=== PATIENT | male | born 1955 | race Caucasian/White ===

== ENCOUNTER 2017-11-10 11:20 | Emergency (ER) | payer BC, SELFPAY ==
[2017-11-10 11:20] VITALS: PULSE 85; RESP 16; TEMP 36.6; O2SAT 98; BMI 34.2
[2017-11-10 11:25] VITALS: BP 174/96; PULSE 81; RESP 17; O2SAT 99
--- NOTE | 2017-11-10 11:40 | EKG12_ITS ---
Test Reason : Blood Pressure : / mmHG Vent. Rate : 075 BPM Atrial Rate : 075 BPM P-R Int : 156 ms QRS Dur : 094 ms QT Int : 416 ms P-R-T Axes : 029 023 031 degrees QTc Int : 464 ms Normal sinus rhythm Normal ECG Confirmed by TYLER DE DIOS, MIRA ([id number]), purchasing expeditor DAIN LUND ([id number]) on 11/12/2017 1:38:01 PM Referred By: JUJU Confirmed By:MIRA SCOTT MD
[2017-11-10 11:51] LABS: Absolute Lymphocyte Count 2.03 X10^3/ul (0.83-4.51); Absolute Neutrophil Count 9.1 X10^3/uL (2.0-7.7); Basophil# 0.03 X10^3/uL; Basophil% 0.2 % (0-1); Eosinophil# 0.07 X10^3/uL; Eosinophils% 0.6 % (0-5); Hematocrit 48.1 % (40-54); Hemoglobin 17.2 g/dl (13.0-16.5); Lymphocyte # 2.03 X10^3/ul (4.0); Lymphocyte % 16.9 % (19-41); Mean Corp Hgb Conc 35.8 g/gl (32-36); Mean Corpuscular Volume 83.9 fL (80-94); Mean Platelet Vol. 10.4 fl (6.2-12.0); Monocyte# 0.75 X10^3/uL; Monocyte% 6.2 % (0-10); Neutrophil # 9.13 X10^3/uL (2.7-7.7); Platelet Count 202 K/mm3 (150-450); RBC Distribution Width CV 13.1 % (11.6-14.6); RBC Distribution Width SD 39.9 fl (35.1-43.9); Red Blood Count 5.73 M/mm3 (4.6-6.2)
[2017-11-10 11:57] LABS: POSITIVE COUNT NO; POSITIVE DIFFERENTIAL NO; POSITIVE MORPHOLOGY NO
--- NOTE | 2017-11-10 12:01 | PCA ---
no old ekg
[2017-11-10] MEDS: Ondansetron 4 MG/2 ML Vial IV (12:06)
[2017-11-10] MEDS: 0.9% Normal Saline 1,000 ML 1000 ML IV (12:06)
[2017-11-10 12:22] LABS: Anion Gap 12 (5-15); BUN 16 mg/dL (7-18); BUN/Creat Ratio 10.6 RATIO (10-20); Calcium,Total 9.6 mg/dL (8.5-10.1); Chloride 104 mmol/L (98-107); Creatinine, Serum 1.51 mg/dL (0.70-1.30); EST Glomerular Filtration Rate 50 mL/min (>60); Est Glom Filt Rate - Afr Amer 61 mL/min (>60); Estimated Creatinine Clearance 48.03 ml/min; Glucose 145 mg/dL (74-106); Potassium 3.4 mmol/L (3.5-5.1); Sodium Level 139 mmol/L (136-145)
--- NOTE | 2017-11-10 12:35 | ED.VISSUMM ---
- ER Visit Summary Date of Service: 11/10/17 Chief Complaint: [Nausea, vomiting, and diarrhea] History of Present Illness: The patient is a 62 M [presents to the emergency department with complaint of not feeling well. Patient tells me that while in [place] he had been standing and began feeling sweaty and near syncopal. There was no syncope however patient did become very diaphoretic. Patient states that he has been ill and throughout the evening he had episodes of diarrhea. Patient does complain of nausea and did vomit ?1 today. He denies any abdominal pain. Denies any chest pain. Patient states that his with similar illness also having diarrhea. Patient's not had any fevers.] Physical Examination: [HEENT-PERRLA, EOMI. Cranial nerves II through XII grossly intact. TMs clear. Mucous membranes moist. No adenopathy. Cardiovascular-regular rate and rhythm without murmur or ectopy Lungs-clear to auscultation, chest wall stable without crepitus or subcu emphysema Abdomen-normoactive bowel sounds, soft, nontender, no rebound or rigidity, no peritoneal signs. Extremities-intact ?4, normal range of motion, normal pulses, atraumatic] Test Results: [EKG obtained on arrival showed a sinus rhythm with a ventricular rate of 75 bpm. CBC with differential showed slightly elevated white blood cell count of 12.0, heme globin 17, hematocrit 40, platelets 202. Chemistries unremarkable. Troponin is less than 0.015. BUN was 16 and creatinine 1.51.] Emergency Department Course and Treatment: [Patient will have orthostatic vital signs assessed prior to discharge. Patient was given Zofran and a liter normal same fluid bolus and did feel much improved.] Treatment Plan: [Patient will be given a prescription for Zofran. Patient advised to push fluids. I suspect patient may have had a vasovagal type episode in [place].] Disposition: [Discharged home stable condition] Impression: [Viral gastroenteritis Vasovagal episode] This note was generated with [employer] dictation software. It may contain incorrect words, spelling, and punctuation that were not noted in review of the chart prior to signing ED Disposition - Plan for ED Patient: Chief Complaint: Nausea/Vomiting/Diarrhea Referrals: Jacki Monroe DO [Primary Care Provider] -
--- NOTE | 2017-11-10 12:38 | ED.DCSUM_ITS ---
- ER Visit Summary Date of Service: 11/10/17 Chief Complaint: [Nausea, vomiting, and diarrhea] History of Present Illness: The patient is a 62 M [presents to the emergency department with complaint of not feeling well. Patient tells me that while in [place] he had been standing and began feeling sweaty and near syncopal. There was no syncope however patient did become very diaphoretic. Patient states that he has been ill and throughout the evening he had episodes of diarrhea. Patient does complain of nausea and did vomit ?1 today. He denies any abdominal pain. Denies any chest pain. Patient states that his with similar illness also having diarrhea. Patient's not had any fevers.] Physical Examination: [HEENT-PERRLA, EOMI. Cranial nerves II through XII grossly intact. TMs clear. Mucous membranes moist. No adenopathy. Cardiovascular-regular rate and rhythm without murmur or ectopy Lungs-clear to auscultation, chest wall stable without crepitus or subcu emphysema Abdomen-normoactive bowel sounds, soft, nontender, no rebound or rigidity, no peritoneal signs. Extremities-intact ?4, normal range of motion, normal pulses, atraumatic] Test Results: [EKG obtained on arrival showed a sinus rhythm with a ventricular rate of 75 bpm. CBC with differential showed slightly elevated white blood cell count of 12.0, heme globin 17, hematocrit 40, platelets 202. Chemistries unremarkable. Troponin is less than 0.015. BUN was 16 and creatinine 1.51.] Emergency Department Course and Treatment: [Patient will have orthostatic vital signs assessed prior to discharge. Patient was given Zofran and a liter normal same fluid bolus and did feel much improved.] Treatment Plan: [Patient will be given a prescription for Zofran. Patient advised to push fluids. I suspect patient may have had a vasovagal type episode in [place].] Disposition: [Discharged home stable condition] Impression: [Viral gastroenteritis Vasovagal episode] This note was generated with [employer] dictation software. It may contain incorrect words, spelling, and punctuation that were not noted in review of the chart prior to signing ED Disposition - Plan for ED Patient: Chief Complaint: Nausea/Vomiting/Diarrhea Referrals: Jacki Monroe DO [Primary Care Provider] -
--- NOTE | 2017-11-10 12:38 | ED.DEP ---
ED Disposition - Plan for ED Patient: Chief Complaint: Nausea/Vomiting/Diarrhea Instructions: ED Gastroenteritis Viral, ED Near Syncope Vasovagal Prescriptions: Ondansetron [Zofran Odt] 4 mg PO Q8H PRN PRN #10 tab PRN Reason: Nausea Referrals: Jacki Monroe DO [Primary Care Provider] - 3-5 Days
[2017-11-10 12:39] VITALS: BP 158/96; BP 162/84; BP 169/96; PULSE 73; PULSE 75; PULSE 80
== END 2017-11-10 15:53 | disposition home or self-care (01) ==
LOC: ED 12:57
PROVIDERS: Emergency Provider Emergency Medicine; Family Provider Family Medicine; PCP Family Medicine
DX: A08.4 Viral intestinal infection, unspecified (principal); R55 Syncope and collapse; F32.9 Major depressive disorder, single episode, unspecified; M10.9 Gout, unspecified; J30.2 Other seasonal allergic rhinitis; E78.00 Pure hypercholesterolemia, unspecified; Z86.79 Personal history of other diseases of the circulatory system; Z79.899 Other long term (current) drug therapy
CPT/HCPCS: 80048; 84484; 85025; 93005; 96374; 99284; A4216; J2405

== ENCOUNTER → 2018-01-14 07:10 | Outpatient (CLI) | payer BC, SELFPAY ==
[2018-01-14 10:06] LABS: Absolute Lymphocyte Count 1.53 X10^3/ul (0.83-4.51); Absolute Neutrophil Count 3.7 X10^3/uL (2.0-7.7); Basophil# 0.03 X10^3/uL; Basophil% 0.5 % (0-1); Eosinophil# 0.29 X10^3/uL; Eosinophils% 4.7 % (0-5); Hematocrit 45.9 % (40-54); Lymphocyte # 1.53 X10^3/ul (4.0); Lymphocyte % 24.8 % (19-41); Mean Corp Hgb Conc 34.9 g/gl (32-36); Mean Corpuscular Hgb 29.3 pg (27.0-32.0); Mean Corpuscular Volume 84.1 fL (80-94); Mean Platelet Vol. 10.6 fl (6.2-12.0); Monocyte# 0.61 X10^3/uL; Monocyte% 9.9 % (0-10); Neutrophil # 3.71 X10^3/uL (2.7-7.7); Neutrophil % 59.9 % (47-70); Platelet Count 207 K/mm3 (150-450); RBC Distribution Width CV 13.2 % (11.6-14.6); RBC Distribution Width SD 39.7 fl (35.1-43.9); Red Blood Count 5.46 M/mm3 (4.6-6.2); White Blood Count 6.2 K/mm3 (4.4-11.0)
[2018-01-14 10:19] LABS: POSITIVE COUNT NO; POSITIVE DIFFERENTIAL NO; POSITIVE MORPHOLOGY NO
[2018-01-14 10:23] LABS: Hemoglobin A1c 5.6 % (4.2-6.3)
[2018-01-14 10:29] LABS: ALB/GLOB Ratio 0.9 RATIO (0.9-2.4); AST(SGOT) 16 U/L (15-37); Alanine Aminotransfer ALT/SGPT 24 U/L (16-61); Albumin, Serum 3.4 g/dL (3.2-5.0); Alkaline Phosphatase 83 U/L (45-117); Anion Gap 11 (5-15); BUN 19 mg/dL (7-18); BUN/Creat Ratio 14.6 RATIO (10-20); Calcium,Total 8.8 mg/dL (8.5-10.1); Chloride 108 mmol/L (98-107); Cholesterol 230 mg/dL (200); EST Glomerular Filtration Rate 60 mL/min (>60); Est Glom Filt Rate - Afr Amer 72 mL/min (>60); Globulin 3.6 g/dL (2.2-4.2); Glucose 121 mg/dL (74-106); High Density Lipoprotein 47 mg/dL; PSA,Total - Annual Screen 1.57 ng/mL (0.00-4.00); Potassium 3.8 mmol/L (3.5-5.1); Sodium Level 141 mmol/L (136-145); Triglycerides 118 mg/dL; Very Low Density Lipoprotein 24 mg/dL (5-40)
== END ==
PROVIDERS: Family Provider Family Medicine; PCP Family Medicine; Visit Provider Family Medicine
DX: E78.5 Hyperlipidemia, unspecified (principal); R73.01 Impaired fasting glucose; Z12.5 Encounter for screening for malignant neoplasm of prostate; Z51.81 Encounter for therapeutic drug level monitoring
CPT/HCPCS: 36415; 80053; 80061; 83036; 84153; 85025; G0103

== ENCOUNTER → 2020-07-11 15:38 | Outpatient (CLI) | payer BC, SELFPAY ==
[2020-07-11 18:12] LABS: Hemoglobin A1c 11.3 % (3.8-5.6)
[2020-07-11 18:29] LABS: ALB/GLOB Ratio 1.2 RATIO (0.9-2.4); AST(SGOT) 17 U/L (15-37); Alanine Aminotransfer ALT/SGPT 52 U/L (16-61); Albumin, Serum 3.8 g/dL (3.2-5.0); Alkaline Phosphatase 106 U/L (45-117); Anion Gap 8 (5-15); BUN 19 mg/dL (7-18); BUN/Creat Ratio 13.9 RATIO (10-20); Calcium,Total 9.4 mg/dL (8.5-10.1); Chloride 100 mmol/L (98-107); Cholesterol 238 mg/dL (200); Creatinine, Serum 1.37 mg/dL (0.70-1.30); EST Glomerular Filtration Rate 56 mL/min (>60); Est Glom Filt Rate - Afr Amer 67 mL/min (>60); Globulin 3.3 g/dL (2.2-4.2); Glucose 532 mg/dL (74-106); High Density Lipoprotein 46 mg/dL; PSA,Total - Annual Screen 2.24 ng/mL (0.00-4.00); Potassium 4.1 mmol/L (3.5-5.1); Protein, Total 7.1 g/dL (6.4-8.2); Sodium Level 132 mmol/L (136-145); Triglycerides 271 mg/dL; Very Low Density Lipoprotein 54 mg/dL (5-40)
== END ==
PROVIDERS: PCP Family Medicine; Visit Provider Family Medicine
DX: Z00.00 Encounter for general adult medical examination without abnormal findings (principal); R81 Glycosuria; Z12.5 Encounter for screening for malignant neoplasm of prostate
CPT/HCPCS: 36415; 80053; 80061; 83036; 83525; 84153; G0103

== ENCOUNTER 2020-07-27 08:43 | Outpatient (RCR) | payer BC, SELFPAY | END 2020-07-27 23:59 | LOC: DC 08:43 | PROVIDERS: PCP Family Medicine; Visit Provider Family Medicine | DX: E11.9 Type 2 diabetes mellitus without complications (principal) | CPT/HCPCS: G0108 ==

== ENCOUNTER 2020-08-25 09:00 | Outpatient (RCR) | payer BC, SELFPAY | END 2020-08-26 23:59 | LOC: DC 09:00 | PROVIDERS: PCP Family Medicine; Visit Provider Family Medicine | DX: E11.9 Type 2 diabetes mellitus without complications (principal) | CPT/HCPCS: 97802; G0108 ==

== ENCOUNTER 2020-10-04 13:00 | Outpatient (RCR) | payer BC, SELFPAY | END 2020-10-26 23:59 | LOC: DC 13:00 | PROVIDERS: PCP Family Medicine; Visit Provider Family Medicine | DX: E11.9 Type 2 diabetes mellitus without complications (principal) | CPT/HCPCS: 97803; G0108 ==

== ENCOUNTER 2020-11-21 13:00 | Outpatient (RCR) | payer BC, SELFPAY | END 2020-11-26 23:59 | LOC: DC 13:00 | PROVIDERS: PCP Family Medicine; Visit Provider Family Medicine | DX: E11.9 Type 2 diabetes mellitus without complications (principal) | CPT/HCPCS: 97803; G0108 ==

== ENCOUNTER → 2021-02-03 10:25 | Outpatient (CLI) | payer BC, SELFPAY ==
--- NOTE | 2021-02-03 10:28 | RAD_ITS ---
STUDY: X-RAY - LUMBAR SPINE REASON FOR EXAM: Male, 65 years old. BACK PAIN TECHNIQUE: 5 view(s) of the lumbar spine were obtained. COMPARISON: MRI dated 11/30/2014 FINDINGS: Normal lumbar lordosis. There is no substantial scoliosis. There is a normal alignment of the vertebrae. Normal vertebral bodies and endplates. Normal disc space heights. The soft tissue structures are unremarkable. RAD/L/S Spine Min 4 Views IMPRESSION: Within normal limits x-ray examination of the lumbar spine. Electronically Signed: Ruthie Comer MD at 12:39 EDT Tel , Service support ,
== END ==
PROVIDERS: PCP Family Medicine; Referring Provider Family Medicine; Visit Provider Family Medicine
DX: M54.9 Dorsalgia, unspecified (principal)
CPT/HCPCS: 72110

== ENCOUNTER → 2021-03-10 07:51 | Outpatient (CLI) | payer BC, SELFPAY ==
--- NOTE | 2021-03-10 08:10 | MRI_ITS ---
STUDY: MRI LUMBAR SPINE WITHOUT CONTRAST REASON FOR EXAM: Male, 66 years old. Low back pain TECHNIQUE: Standardized fat and water weighted pulse sequences were obtained in the sagittal and axial planes. COMPARISON: 30 November 2014 MR, 03 February 2021 plain films FINDINGS: T12-L1: Mildly degenerated endplates. Decreased disc height, altered hydration and degenerative bulge morphology. Normal bilateral facet joints. Normal central canal and bilateral lateral recesses. Normal bilateral intervertebral neural foramina. Normal lumbar lordosis. There is no substantial scoliosis. Normal conus medullaris that terminates at the L1-L2 L1-2: Degenerative endplates. Normal disc height, hydration and morphology. Normal bilateral facet joints. Normal central canal and bilateral lateral recesses. Normal bilateral intervertebral neural foramina. L2-3: Degenerative endplates. Normal disc height, altered hydration and morphology. Normal bilateral facet joints. Normal central canal and bilateral lateral recesses. Normal bilateral intervertebral neural foramina. L3-4: Degenerative endplates. Normal disc height, altered hydration and morphology. Normal bilateral facet joints. Normal central canal and bilateral lateral recesses. Normal bilateral intervertebral neural foramina. L4-5: Normal endplates. There is an annular bulge with a right foraminal disc herniation of the protrusion type measuring approximately 2 x 4 mm in AP and transverse diameter (axial T2 series 5 image 8). There is bilateral facet arthrosis. Normal spinal canal. There is right foraminal noncompressive stenosis L5-S1: Normal endplates. Loss of intervertebral disc height. Normal bilateral facet joints. Normal central canal and bilateral lateral recesses. Normal bilateral intervertebral neural foramina. Normal visualized sacral ala. Normal visualized paraspinous soft tissue structures. There are bilateral central renal sinus cysts without hydronephrosis. MRI/Spine Lumbar (Routine) IMPRESSION: Degenerative changes in the lumbar spine. 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 Electronically Signed: Arturo Roca MD at 16:07 EST , Service support ,
== END ==
PROVIDERS: PCP Family Medicine; Referring Provider Family Medicine; Visit Provider Family Medicine
DX: M54.50 Low back pain, unspecified (principal)
CPT/HCPCS: 72148

== ENCOUNTER → 2021-03-28 07:53 | Outpatient (CLI) | payer MEDICARE, BC, SELFPAY ==
--- NOTE | 2021-03-28 07:56 | NM_ITS ---
CLINICAL: 86-year-old male with reported history of low back discomfort. WHOLE BODY 99m Tc MDP RADIONUCLIDE BONE SCINTIGRAPHY COMPARISON: Plain film radiograph report lumbar spine 02/03/2021, MRI of the lumbar spine report 03/10/2021 FINDINGS: Following the intravenous administration of 24.3 mCi of 99m Tc MDP, whole body bone images reveal: 1. Increased radiopharmaceutical concentration is identified in the acromioclavicular compartment of the right shoulder, sternoclavicular compartments of both shoulders, the right wrist and hand, patellofemoral compartments of both knees, posterior midline sacrum. 2. The remaining skeletal structures are scintigraphically unremarkable with normal-appearing renal images and urinary bladder activity identified. NM/Bone Scan Whole Body IMPRESSION: 1. The increase in radiopharmaceutical concentration identified in the bilateral shoulders, right wrist, right hand, knee articulations bilaterally is posterior midline sacrum is most consistent with degenerative arthritis. 2. There is no definitive typical scintigraphic evidence of fracture or large articulation synovial inflammation on the current examination. Electronically Signed: Zhao Kitchen DO at 21:52 EST Tel , Service support ,
== END ==
PROVIDERS: PCP Family Medicine; Referring Provider Orthopaedic Surgery; Visit Provider Orthopaedic Surgery
DX: S39.012A Strain of muscle, fascia and tendon of lower back, initial encounter (principal)
CPT/HCPCS: 78306; A9503

== ENCOUNTER → 2021-10-23 | Outpatient (CLI) | payer MEDICARE, SELFPAY ==
[2021-10-23 09:52] LABS: Absolute Lymphocyte Count 1.51 X10^3/uL (0.83-4.51); Absolute Neutrophil Count 4.7 X10^3/uL (2.0-7.7); Basophil# 0.07 X10^3/uL; Basophil% 0.9 % (0-1); Eosinophil# 0.84 X10^3/uL; Eosinophils% 10.8 % (0-5); Hematocrit 44.2 % (40-54); Hemoglobin 15.1 g/dL (13.0-16.5); Lymphocyte # 1.51 X10^3/ul (0.83-4.51); Lymphocyte % 19.5 % (19-41); Mean Corp Hgb Conc 34.2 g/dL (32-36); Mean Corpuscular Hgb 29.8 pg (27.0-32.0); Mean Corpuscular Volume 87.4 fL (80-94); Mean Platelet Vol. 10.4 fl (6.2-12.0); Monocyte# 0.65 X10^3/uL; Monocyte% 8.4 % (0-10); NRBC Flagged by Analyzer 0 % (0-5); Neutrophil # 4.65 X10^3/uL (2.7-7.7); Neutrophil % 59.9 % (47-70); Platelet Count 221 K/mm3 (150-450); RBC Distribution Width CV 12.7 % (11.6-14.6); RBC Distribution Width SD 40.1 fl (35.1-43.9); Red Blood Count 5.06 M/mm3 (4.6-6.2); White Blood Count 7.8 K/mm3 (4.4-11.0)
[2021-10-23 10:40] LABS: Microalbumin,Random Urine 9.8 mg/L (NO RANGE EST.); Microalbumin:Creatinine Ratio 7.3 mg/g CRE (<30 mg/g CRE)
[2021-10-23 11:22] LABS: ALB/GLOB Ratio 1.1 RATIO (0.9-2.4); AST(SGOT) 10 U/L (15-37); Alanine Aminotransfer ALT/SGPT 28 U/L (16-61); Albumin, Serum 3.5 g/dL (3.2-5.0); Alkaline Phosphatase 72 U/L (45-117); Anion Gap 9 (5-15); BUN 21 mg/dL (7-18); Calcium,Total 9.4 mg/dL (8.5-10.1); Chloride 106 mmol/L (98-107); Cholesterol 230 mg/dL (200); Creatinine, Serum 1.05 mg/dL (0.70-1.30); EST Glomerular Filtration Rate 75 mL/min (>60); Est Glom Filt Rate - Afr Amer 91 mL/min (>60); Globulin 3.2 g/dL (2.2-4.2); Glucose 138 mg/dL (74-106); High Density Lipoprotein 51 mg/dL; Potassium 4.2 mmol/L (3.5-5.1); Protein, Total 6.7 g/dL (6.4-8.2); Sodium Level 141 mmol/L (136-145); Triglycerides 123 mg/dL; Uric Acid 4.8 mg/dL (3.5-7.2); Very Low Density Lipoprotein 25 mg/dL (5-40)
== END | disposition home or self-care (01) ==
PROVIDERS: PCP Family Medicine; Referring Provider Family Medicine; Visit Provider Family Medicine
DX: Z00.00 Encounter for general adult medical examination without abnormal findings (principal); E11.9 Type 2 diabetes mellitus without complications; M10.9 Gout, unspecified; E78.5 Hyperlipidemia, unspecified; Z51.81 Encounter for therapeutic drug level monitoring
CPT/HCPCS: 36415; 80053; 80061; 82043; 82570; 83036; 84550; 85025

== ENCOUNTER → 2021-12-06 | Outpatient (CLI) | payer MEDICARE, SELFPAY ==
[2021-12-06 12:37] LABS: AST(SGOT) 12 U/L (15-37); Alanine Aminotransfer ALT/SGPT 26 U/L (16-61); Albumin, Serum 3.3 g/dL (3.2-5.0); Alkaline Phosphatase 69 U/L (45-117); Bilirubin, Direct 0.12 mg/dL (0.00-0.30); Cholesterol 168 mg/dL (200); Globulin 3.3 g/dL (2.2-4.2); High Density Lipoprotein 57 mg/dL; Protein, Total 6.6 g/dL (6.4-8.2); Triglycerides 90 mg/dL; Very Low Density Lipoprotein 18 mg/dL (5-40)
== END | disposition home or self-care (01) ==
LOC: MTLAB 09:30
PROVIDERS: PCP Family Medicine; Referring Provider Family Medicine; Visit Provider Family Medicine
DX: E11.9 Type 2 diabetes mellitus without complications (principal); Z51.81 Encounter for therapeutic drug level monitoring
CPT/HCPCS: 36415; 80061; 80076

== ENCOUNTER → 2023-01-01 | Outpatient (CLI) | payer MEDICARE, SELFPAY ==
[2023-01-01 12:29] LABS: Absolute Lymphocyte Count 1.84 X10^3/uL (0.83-4.51); Absolute Neutrophil Count 4.8 X10^3/uL (2.0-7.7); Basophil# 0.08 X10^3/uL; Eosinophil# 0.46 X10^3/uL; Eosinophils% 5.9 % (0-5); Hematocrit 48.9 % (40-54); Hemoglobin 16.4 g/dL (13.0-16.5); Lymphocyte # 1.84 X10^3/ul (0.83-4.51); Lymphocyte % 23.5 % (19-41); Mean Corp Hgb Conc 33.5 g/dL (32-36); Mean Corpuscular Hgb 28.6 pg (27.0-32.0); Mean Corpuscular Volume 85.3 fL (80-94); Mean Platelet Vol. 10.9 fl (6.2-12.0); Monocyte# 0.63 X10^3/uL; NRBC Flagged by Analyzer 0 % (0-5); Neutrophil # 4.78 X10^3/uL (2.7-7.7); Platelet Count 231 K/mm3 (150-450); RBC Distribution Width CV 12.9 % (11.6-14.6); RBC Distribution Width SD 39.6 fl (35.1-43.9); Red Blood Count 5.73 M/mm3 (4.6-6.2); White Blood Count 7.8 K/mm3 (4.4-11.0)
[2023-01-01 12:50] LABS: ALB/GLOB Ratio 1.1 RATIO (0.9-2.4); AST(SGOT) 14 U/L (15-37); Alanine Aminotransfer ALT/SGPT 27 U/L (16-61); Albumin, Serum 3.8 g/dL (3.2-5.0); Alkaline Phosphatase 90 U/L (45-117); Anion Gap 5 (5-15); BUN 17 mg/dL (7-18); BUN/Creat Ratio 13.5 RATIO (10-20); Calcium,Total 9.2 mg/dL (8.5-10.1); Chloride 107 mmol/L (98-107); Cholesterol 189 mg/dL (200); Creatinine, Serum 1.26 mg/dL (0.70-1.30); EST Glomerular Filtration Rate 61 mL/min (>60); Est Glom Filt Rate - Afr Amer 74 mL/min (>60); Globulin 3.5 g/dL (2.2-4.2); Glucose 203 mg/dL (74-106); High Density Lipoprotein 62 mg/dL; Potassium 4.6 mmol/L (3.5-5.1); Protein, Total 7.3 g/dL (6.4-8.2); Sodium Level 138 mmol/L (136-145); Triglycerides 110 mg/dL; Uric Acid 4.7 mg/dL (3.5-7.2); Very Low Density Lipoprotein 22 mg/dL (5-40)
[2023-01-01 13:05] LABS: Microalbumin:Creatinine Ratio 70.4 mg/g CRE (<30 mg/g CRE)
== END | disposition home or self-care (01) ==
LOC: BFHLAB 10:24
PROVIDERS: PCP Family Medicine; Referring Provider Family Medicine; Visit Provider Family Medicine
DX: E11.9 Type 2 diabetes mellitus without complications (principal); E78.5 Hyperlipidemia, unspecified; M10.9 Gout, unspecified; Z51.81 Encounter for therapeutic drug level monitoring
CPT/HCPCS: 36415; 80053; 80061; 82043; 82570; 84550; 85025

== ENCOUNTER 2023-03-03 07:15 | Emergency (ER) | payer MEDICARE, SELFPAY ==
[2023-03-03 07:16] VITALS: BP 169/96; PULSE 83; RESP 18; TEMP 36.4; O2SAT 100; BMI 30.7
[2023-03-03 07:41] VITALS: BP 169/96; PULSE 85; RESP 16; TEMP 36.4; O2SAT 99
[2023-03-03 07:47] LABS: Bacteria 0 SEEN /hpf (None Seen); Mucous, Urine 0 SEEN /hpf (<or=2+); Red Blood Cells-Urine 0 SEEN /hpf (0-5); Squamous Epithelial Cells - UA 0 SEEN /hpf (0-5)
[2023-03-03] MEDS: 0.9% Normal Saline (1000mL) 1,000 ML 1000 ML IV (07:47)
[2023-03-03] MEDS: Ondansetron 4 MG/2 ML Vial IV (07:48)
[2023-03-03] MEDS: Ketorolac 15 MG/ML Vial IV (07:48)
[2023-03-03 07:55] LABS: Absolute Lymphocyte Count 1.32 X10^3/uL (0.83-4.51); Absolute Neutrophil Count 6.4 X10^3/uL (2.0-7.7); Basophil# 0.05 X10^3/uL; Basophil% 0.6 % (0-1); Eosinophil# 0.08 X10^3/uL; Eosinophils% 0.9 % (0-5); Hematocrit 46.2 % (40-54); Lymphocyte # 1.32 X10^3/ul (0.83-4.51); Lymphocyte % 15.1 % (19-41); Mean Corp Hgb Conc 34.6 g/dL (32-36); Mean Corpuscular Hgb 28.1 pg (27.0-32.0); Mean Corpuscular Volume 81.2 fL (80-94); Mean Platelet Vol. 10.4 fl (6.2-12.0); Monocyte% 10.3 % (0-10); NRBC Flagged by Analyzer 0 % (0-5); Neutrophil # 6.36 X10^3/uL (2.7-7.7); Neutrophil % 72.6 % (47-70); Platelet Count 326 K/mm3 (150-450); RBC Distribution Width CV 12.8 % (11.6-14.6); RBC Distribution Width SD 37.3 fl (35.1-43.9); Red Blood Count 5.69 M/mm3 (4.6-6.2); White Blood Count 8.8 K/mm3 (4.4-11.0)
[2023-03-03 07:57] LABS: Color, Urine Yellow (Yellow); Glucose, Dipstick 250 mg/dl (Normal); Leukocyte Esterase-Dipstick 25 /ul (Negative); Nitrite-Dipstick Negative (Negative); Occult Blood-Urine 10 /ul (Negative); Protein-Dipstick 30 mg/dl (Negative); Specific Gravity, Urine 1.015 (1.002-1.030); Urine Bilirubin Dipstick Negative (Negative); Urine Clarity Clear (Clear); Urine Urobilinogen 4 mg/dl (Normal)
--- NOTE | 2023-03-03 08:01 | EDS_ITS ---
HPI HPI - GI History of Present Illness Chief Complaint: Nausea/Vomiting/Diarrhea Narrative Narrative: 67-year-old male presenting with nausea, vomiting, diarrhea. He states on he started having diarrhea and took some Mylanta which did somewhat help with diarrhea and then night began having vomiting. He states he believes he had fevers but does not have a thermometer because his home belongings are packed in a car because he is moving to [place] next week. Patient does describe chills and body aches. Patient states nobody else is sick at home. Patient states that he is not been able to take his medicines at home because of the nausea vomiting. Has been able to drink fluids. Patient has been taking Pepto-Bismol and Nausine [id number] nausea medicine. Denies abdominal pain. Denies cough or shortness of breath. States he was tested positive for COVID about 14 days ago but recovered from it. [facility] Medical History Allergies Arthritis Asthma Back problem Diabetes mellitus Gastrointestinal problem Gout Hearing problem History of emotional problems Hypertension Irritable bowel syndrome MDD (major depressive disorder) Vision problems Home Medications fluticasone propionate 50 mcg/actuation nasal spray,suspension (Flonase Allergy Relief) 9.9 ml NS DAILY 11/10/17 [History Last Taken Unknown] cyclobenzaprine 10 mg tablet mg PO 06/25/22 [History Last Taken Unknown] metformin 500 mg tablet mg PO 06/25/22 [History Last Taken Unknown] nabumetone 750 mg tablet mg PO 06/25/22 [History Last Taken Unknown] rosuvastatin 5 mg tablet mg PO 06/25/22 [History Last Taken Unknown] propranolol 60 mg capsule,24 hr,extended release mg PO 09/10/22 [History Last Taken Unknown] bupropion HCl 150 mg 24 hr tablet, extended release 150 mg PO QHS #90 tabs 02/25/23 [Rx Last Taken Unknown] clonazepam 0.5 mg tablet 0.5 mg PO QHS #90 tabs 02/25/23 [Rx Last Taken Unknown] paroxetine HCl 20 mg tablet 20 mg PO DAILY #90 tabs 02/25/23 [Rx Last Taken Unknown] famotidine 20 mg tablet (Pepcid) 20 mg PO BID #10 tabs 03/03/23 [Rx Last Taken Unknown] ondansetron 4 mg disintegrating tablet 4 mg PO Q8H PRN PRN Nausea #14 tabs 03/03/23 [Rx Last Taken Unknown] Allergy/AdvReac Type Severity Reaction Status Date / Time erythromycin base AdvReac Upset Verified 03/03/23 07:18 Stomach Family History Other Alcoholism Anxiety Depression Diabetes Hypertension Mental disorder Suicide attempt Surgical History Hx of appendectomy Social History Smoking Status: Never smoker alcohol intake: current details: [employer], Wine, Cocktails occasionally substance use type: does not use what type of physical activity do you participate in: walking ROS ROS ED Constitutional Constitutional ED: Reports chills, fever(s) and subjective ENT ENT ED: Denies rhinorrhea or sore throat Cardiovascular Cardiovascular: Denies chest pain or palpitations Respiratory/Chest Respiratory/Chest: Denies cough or dyspnea Gastrointestinal Gastrointestinal: Reports diarrhea, nausea and vomiting; Denies abdominal pain Genitourinary Genitourinary ED: Denies dysuria or hematuria Musculoskeletal Musculoskeletal: Reports myalgias Integumentary Denies abscess or Abrasions Neurologic Neurologic: Reports headache(s); Denies paresthesias or weakness Psychiatric Psychiatric: Denies anxiety or depression Endocrine Endocrinology: Denies polydipsia or polyphagia EXAM Physical Exam Const Vital Signs: 03/03/23 07:16 03/03/23 07:41 03/03/23 07:41 Temperature 97.5 F L 97.5 F L 97.5 F L Temperature Source Temporal Oral Oral Pulse Rate 83 85 85 Respiratory Rate 18 16 16 Blood Pressure 169/96 H 169/96 H 169/96 H Blood Pressure Mean 120 120 120 Pulse Ox 100 99 99 Oxygen Delivery Method Room Air Room Air Room Air Positive well nourished General Appearance ED: Negative for pallor HEENT Reports TM's clear and moist mucous membranes normocephalic and atraumatic Tympanic Membrane ED: Yes TM's clear Eyes PERRL and EOMs intact bilaterally Resp normal respiratory effort and clear to auscultation bilaterally Auscultation: Negative for rales, rhonchi or wheezes Cardio regular rate and regular rhythm GI non-tender and non-distended Neuro CN's II-XII intact bilaterally and moves all extremities Sensorium / Orientation: alert Motor Exam: strength 5/5 throughout Psych mental status grossly normal Skin General Skin Exam: Negative for jaundice or pallor MDM MDM MDM Narrative Medical decision making narrative: 67-year-old male present with nausea, vomiting, diarrhea. Differential includes gastritis, colitis, dehydration, electrolyte abnormalities. This is most likely viral in nature. IV line was established patient given normal saline, Zofran, Toradol. Vital signs are stable he is afebrile. CBC was obtained to assess white blood cell count, hemoglobin, platelets. CMP to assess liver function, renal function, electrolytes. Lipase to assess for pancreatitis. CBC, CMP, lipase unremarkable exception of a total bilirubin of 1.1 which is nonspecific. Urinalysis shows urine ketones and 250 blood sugar. No evidence of infection. Patient reevaluated at 9:10 AM and states is feeling better. He was given a prescription for Pepcid and Zofran for home. He is instructed on bland diet and return precautions were given. Impression: 1. Viral gastroenteritis Lab Data Attestation: I reviewed the patient's lab results. Labs: Laboratory Results - last 24 hr 03/03/23 03/03/23 07:24 07:38 WBC 8.8 RBC 5.69 Hgb 16.0 Hct 46.2 MCV 81.2 MCH 28.1 MCHC 34.6 RDW Std Deviation 37.3 RDW Coeff of Alisha 12.8 Plt Count 326 MPV 10.4 Immature Gran % (Auto) 0.500 Neut % (Auto) 72.6 H Lymph % (Auto) 15.1 L [place] % (Auto) 10.3 H Eos % (Auto) 0.9 Baso % (Auto) 0.6 Absolute Neuts (auto) 6.4 Absolute Lymphs (auto) 1.32 Nucleated RBC % 0 Sodium 139 Potassium 3.5 Chloride 107 Carbon Dioxide 22.0 Anion Gap 10 BUN 16 Creatinine 1.22 Estim Creat Clear Calc 55.69 Est GFR (MDRD) Af Amer 76 Est GFR (MDRD) Non-Af 63 BUN/Creatinine Ratio 13.1 Glucose 188 H Calcium 9.7 Total Bilirubin 1.10 H AST 17 ALT 30 Alkaline Phosphatase 94 Total Protein 7.2 Albumin 3.7 Globulin 3.5 Albumin/Globulin Ratio 1.1 Lipase 20 Urine Color Yellow Urine Clarity Clear Urine pH 6.0 Ur Specific [place] 1.015 Urine Protein 30 H Urine Glucose (UA) 250 H Urine Ketones 150 A* Urine Occult Blood 10 H Urine Nitrite Negative Urine Bilirubin Negative Urine Urobilinogen 4 H Ur Leukocyte Esterase 25 H Urine RBC 0 SEEN Urine WBC 0-5 SEEN Ur Squamous Epith Cells 0 SEEN Urine Bacteria 0 SEEN Hyaline Casts 0-5 SEEN Urine Mucus 0 SEEN Discharge Plan Triage Chief Complaint: Nausea/Vomiting/Diarrhea ED Provider: Jarod Boucher Dx/Rx/DC Orders Instructions: ED Gastroenteritis, Viral (Adult) Prescriptions: New ondansetron 4 mg tablet,disintegrating 4 mg PO Q8H PRN PRN (Reason: Nausea) Qty: 14 0RF famotidine [Pepcid] 20 mg tablet 20 mg PO BID Qty: 10 0RF No Action nabumetone 750 mg tablet PO cyclobenzaprine 10 mg tablet PO rosuvastatin 5 mg tablet PO metformin 500 mg tablet PO propranolol 60 mg capsule,extended release 24 hr PO clonazepam 0.5 mg tablet 0.5 mg PO QHS Qty: 90 0RF bupropion HCl 150 mg tablet extended release 24 hr 150 mg PO QHS Qty: 90 0RF paroxetine HCl 20 mg tablet 20 mg PO DAILY Qty: 90 0RF fluticasone propionate [Flonase Allergy Relief] 9.9 ML spray,suspension 9.9 ml NS DAILY Primary Care Provider: Brian Mo Referrals: Brian Mo DO [Primary Care Provider] - Disposition Disposition: Home, Self Care
[2023-03-03 08:07] LABS: ALB/GLOB Ratio 1.1 RATIO (0.9-2.4); AST(SGOT) 17 U/L (15-37); Alanine Aminotransfer ALT/SGPT 30 U/L (16-61); Albumin, Serum 3.7 g/dL (3.2-5.0); Alkaline Phosphatase 94 U/L (45-117); Anion Gap 10 (5-15); BUN 16 mg/dL (7-18); BUN/Creat Ratio 13.1 RATIO (10-20); Calcium,Total 9.7 mg/dL (8.5-10.1); Chloride 107 mmol/L (98-107); Creatinine, Serum 1.22 mg/dL (0.70-1.30); EST Glomerular Filtration Rate 63 mL/min (>60); Est Glom Filt Rate - Afr Amer 76 mL/min (>60); Estimated Creatinine Clearance 55.69 ml/min; Globulin 3.5 g/dL (2.2-4.2); Glucose 188 mg/dL (74-106); Lipase 20 U/L (13-75); Potassium 3.5 mmol/L (3.5-5.1); Protein, Total 7.2 g/dL (6.4-8.2); Sodium Level 139 mmol/L (136-145)
[2023-03-03 08:57] LABS: Ketone-Dipstick 150 mg/dl (Negative)
[2023-03-03 08:58] LABS: White Blood Cells 0-5 SEEN /hpf (0-5)
[2023-03-03 09:09] LABS: Hyaline Cast 0-5 SEEN /lpf (0-5)
[2023-03-03 09:30] VITALS: BP 145/70; PULSE 68; RESP 19
== END 2023-03-03 09:33 | disposition home or self-care (01) ==
PROVIDERS: Emergency Provider Student in an Organized Health Care Education/Training Program; PCP Family Medicine; Visit Provider Student in an Organized Health Care Education/Training Program
DX: A08.4 Viral intestinal infection, unspecified (principal); E11.9 Type 2 diabetes mellitus without complications; J45.909 Unspecified asthma, uncomplicated; I10 Essential (primary) hypertension; Z79.899 Other long term (current) drug therapy; Z79.84 Long term (current) use of oral hypoglycemic drugs; M19.90 Unspecified osteoarthritis, unspecified site; F32.9 Major depressive disorder, single episode, unspecified; Z90.49 Acquired absence of other specified parts of digestive tract
CPT/HCPCS: 80053; 81001; 83690; 85025; 96361; 96374; 96375; 99283; J7030; J2405